=== PATIENT | female | born 1950 | race Caucasian/White ===

== ENCOUNTER 2016-12-03 15:21 | Emergency (ER) | payer MEDICARE ==
--- NOTE | ~2016-12-03 | EKG ---
[place], [place] ELECTROCARDIOGRAM REPORT [id number] UNIT #: [id number] ROOM: DOCTOR: JONAH COE MD BIRTHDATE: [birth year] DOS: 12/03/2016 TIME: 1534. FINDINGS: Normal sinus rhythm at rate 67. Left anterior fascicular block. Nonspecific T-wave flattening. Prolonged corrected QT interval at 524 milliseconds. Abnormal electrocardiogram. JONAH COE MD CM:EKGRPT:ELECTROCARDIOGRAM REPORT [id number] JONAH COE MD
[~2016-12-03 15:21] MED LIST: DARVOCET N 1001 TAB PO; DAYPRO600 M1 PO
[2016-12-03 15:47] LABS: BASO % 0.5 % (0.0-1.0); EOS # 0.1 10*3/uL (0.0-0.4); HEMATOCRIT 35.6 % (37.0-47.0); LYMPH # 2.5 10*3/uL (1.3-4.4); LYMPH % 28.2 % (27.0-41.0); MEAN CELL VOLUME 81.5 fl (81.0-99.0); MEAN CORPUSCULAR HGB 25.2 pg (27.0-31.0); MEAN CORPUSCULAR HGB CONC 30.9 g/dl (33.0-37.0); MEAN PLATELET VOLUME 10.3 fl (9.6-12.3); MONO # 0.6 10*3/uL (0.1-1.0); MONO % 6.9 % (3.0-9.0); NEUT # 5.5 10*3/uL (2.3-7.9); NEUT % 63.1 % (47.0-73.0); PLATELET COUNT AUTOMATED 286 10*3/uL (130-400); RED BLOOD COUNT 4.37 10*6/uL (4.10-5.10); RED CELL DISTRI WIDTH 14.2 % (0-14.5); WHITE BLOOD COUNT 8.8 10*3/uL (4.8-10.8)
[2016-12-03 16:04] LABS: ALBUMIN 3.8 gm/dl (3.1-4.5); ALKALINE PHOSPHATASE 117 U/L (45-117); BILIRUBIN, TOTAL 0.3 mg/dl (0.2-1.0); BUN 16 mg/dl (7-24); CARBON DIOXIDE 29 mmol/L (21-32); CHLORIDE 102 mmol/L (98-107); EST GLOM FILT AFRICAN AMERICAN > 60 ml/min; GLUCOSE 82 mg/dL (65-99); POTASSIUM 3.4 mmol/L (3.5-5.1); SGOT/AST 17 IU/L (3-35); SGPT/ALT 20 U/L (12-78); SODIUM 140 mmol/L (136-145); TOTAL PROTEIN 7.4 gm/dL (6.4-8.2)
[2016-12-03 16:09] LABS: TROPONIN I < 0.015 ng/ml (<0.045)
== END 2016-12-03 17:26 | disposition short-term general hospital (02) ==
LOC: ED 15:21
PROVIDERS: Emergency Medicine
DX: I63.9 Cerebral infarction, unspecified (principal); I10 Essential (primary) hypertension; Z91.030 Bee allergy status; Z91.041 Radiographic dye allergy status; Z88.0 Allergy status to penicillin; Z91.040 Latex allergy status; Z88.1 Allergy status to other antibiotic agents; Z88.6 Allergy status to analgesic agent

== ENCOUNTER → 2019-10-15 | Outpatient (CLI) | payer BC, MEDICARE ==
[~2019-10-15] MED LIST changes: +AMINOPHYLLIN200 MG PO
[2019-10-15 13:36] LABS: BASO # 0.1 10*3/uL (0.0-0.1); BASO % 0.7 % (0.0-1.0); EOS # 0.3 10*3/uL (0.0-0.4); EOS % 2.7 % (1.0-4.0); HEMATOCRIT 38.9 % (37.0-47.0); HEMOGLOBIN 11.8 g/dl (12.0-16.0); LYMPH # 2.3 10*3/uL (1.3-4.4); LYMPH % 20.5 % (27.0-41.0); MEAN CELL VOLUME 84.7 fl (81.0-99.0); MEAN CORPUSCULAR HGB 25.7 pg (27.0-31.0); MEAN CORPUSCULAR HGB CONC 30.3 g/dl (33.0-37.0); MEAN PLATELET VOLUME 11.1 fl (9.6-12.3); MONO # 0.6 10*3/uL (0.1-1.0); MONO % 5.1 % (3.0-9.0); NEUT # 7.8 10*3/uL (2.3-7.9); NEUT % 70.6 % (47.0-73.0); PLATELET COUNT AUTOMATED 259 10*3/uL (130-400); RED BLOOD COUNT 4.59 10*6/uL (4.10-5.10); RED CELL DISTRI WIDTH 13.3 % (0-14.5); WHITE BLOOD COUNT 11.1 10*3/uL (4.8-10.8)
[2019-10-15 13:55] LABS: ALBUMIN 3.4 gm/dl (3.1-4.5); ALKALINE PHOSPHATASE 98 U/L (45-117); BUN 9 mg/dl (7-24); CHLORIDE 108 mmol/L (98-107); CHOLESTEROL 194 mg/dL (<200); CREATININE 0.85 mg/dL (0.55-1.02); HDL CHOLESTEROL 51 mg/dl (40-60); LDL CHOLESTEROL 119 mg/dL (9-159); SGOT/AST 12 IU/L (3-35); SGPT/ALT 16 U/L (12-78); SODIUM 144 mmol/L (136-145); TRIGLYCERIDES 122 mg/dl (<150); VLDL CHOLESTEROL 24 mg/dL (6-40)
== END | disposition home or self-care (01) ==
LOC: LAB 00:01 → RESCLI 11:57 → LAB 11:57
PROVIDERS: Internal Medicine
DX: I10 Essential (primary) hypertension (principal); J98.8 Other specified respiratory disorders

== ENCOUNTER → 2021-07-29 | Outpatient (CLI) | payer BC, MEDICARE | END | disposition home or self-care (01) | LOC: COVID19 16:27 | PROVIDERS: ATTEND Internal Medicine | DX: Z20.822 Contact with and (suspected) exposure to COVID-19 (principal) ==

== ENCOUNTER 2024-04-26 22:39 | Emergency (ER) | payer MEDICARE ==
[~2024-04-26 22:39] MED LIST changes: +ACETAMINOPHEN325 M2 PO; +AIRSUPRA 90-810.7 GM IH; +ATIVAN1 MG PO; +ATORVASTATIN CA20 M1 PO; +BREZTRI AEROS10.7 GM INH; +CELECOXIB200 MG PO; +CHLORASEPTIC T1 EACH PO; +COLACE100 MG PO; +COLESTIPOL HYDRO1 GM PO; +CYCLOBENZAPRINE10 MG PO; +CYMBALTA60 MG PO; +Clotrimazole Tr10 MG PO; +DECADRON4 MG PO; +ERGOCALCIFEROL1 GM MC; +FLEET ENEMA 13133 ML R; +GENTLE LAXATIVE10 MG R; +HYDROCODONE-AC1 EACH PO; +Ipratropium Brom3 ML NEB; +LASIX20 MG PO; +LEVOTHYROXINE25 MCG PO; +LIDOCAINE MM; +LOTREL 10-40 M1 EACH PO; +LYRICA100 M1 PO; +MILK OF MA2400 MG/11 PO; +NATURE'S BLEND F1 MG PO; +OMEPRAZOLE40 MG PO; +SODIUM CHLORI1000 M5 PO; +VITAMIN B12500 MC2 PO; +VITAMIN D3125 MC1 PO
== END 2024-04-27 05:18 ==
LOC: ED 22:39
DX: S20.212A Contusion of left front wall of thorax, initial encounter (principal); S09.8XXA Other specified injuries of head, initial encounter; J44.9 Chronic obstructive pulmonary disease, unspecified; I10 Essential (primary) hypertension; E83.42 Hypomagnesemia; E87.1 Hypo-osmolality and hyponatremia; E78.5 Hyperlipidemia, unspecified; F32.A Depression, unspecified; F41.9 Anxiety disorder, unspecified; G43.909 Migraine, unspecified, not intractable, without status migrainosus; K21.9 Gastro-esophageal reflux disease without esophagitis; D64.9 Anemia, unspecified; Z91.030 Bee allergy status; Z91.041 Radiographic dye allergy status; Z88.0 Allergy status to penicillin; Z88.1 Allergy status to other antibiotic agents; Z91.040 Latex allergy status; Z88.8 Allergy status to other drugs, medicaments and biological substances; Z90.49 Acquired absence of other specified parts of digestive tract; Z90.710 Acquired absence of both cervix and uterus; Z98.890 Other specified postprocedural states; W06.XXXA Fall from bed, initial encounter; Y93.89 Activity, other specified; Y92.129 Unspecified place in nursing home as the place of occurrence of the external cause; Y99.8 Other external cause status